=== PATIENT | male | born 1975 | race Caucasian/White ===

== ENCOUNTER 2024-04-07 09:00 | Observation (INO) | payer BC ==
[~2024-04-07] VITALS: Ht 190.5 cm; Wt 156.1 kg
[2024-04-07 10:03] LABS: BASO % 0.8 % (0.0-1.0); EOS # 0.2 10^3/uL (0.0-0.5); EOS % 2.9 % (0.0-3.0); HEMATOCRIT 49.8 % (42.0-52.0); HEMOGLOBIN 17.3 g/dl (13.5-17.5); LYMPH # 0.9 10^3/uL (1.5-5.0); LYMPH % 17.9 % (24.0-44.0); MEAN CORPUSCULAR HEMOGLOBIN 32.3 pg (27.0-33.0); MEAN CORPUSCULAR HGB CONC 34.7 g/dl (32.0-36.5); MEAN CORPUSCULAR VOLUME 93.1 fl (80.0-96.0); MONO # 0.3 10^3/uL (0.0-0.8); NEUTROPHILS # 3.7 10^3/uL (1.5-8.5); PLATELET COUNT, AUTOMATED 234 10^3/uL (150-450); RED BLOOD COUNT 5.35 10^6/uL (4.30-6.10); WHITE BLOOD COUNT 5.2 10^3/uL (4.0-10.0)
[2024-04-07 10:21] LABS: ETHYL ALCOHOL (ETHANOL) < 0.003 % (0.000-0.010); LIPASE 294 U/L (12-53)
[2024-04-07] MEDS: NS 500 ML IV ONE (10:21)
[2024-04-07 10:23] LABS: SALICYLATE LEVEL < 3.0 MG/DL (<30)
[2024-04-07] MEDS ORDERED: MULT1TAB7 PO (10:26)
[2024-04-07] MEDS ORDERED: B-12100020 PO (10:26)
[2024-04-07] MEDS ORDERED: LISI2.5T9 PO (10:26)
[2024-04-07] MEDS ORDERED: FLON27.5 (10:26)
[2024-04-07] MEDS ORDERED: CLAR10CA3 PO (10:26)
[2024-04-07] MEDS ORDERED: ESCI5SOL3 PO (10:26)
[2024-04-07] MEDS ORDERED: CALC500C16 PO (10:26)
[2024-04-07] MEDS ORDERED: FOLI400T13 PO ×2 (10:26→13:35)
[2024-04-07] MEDS ORDERED: METO200T15 PO (10:26)
[2024-04-07] MEDS ORDERED: FERR240T PO (10:26)
[2024-04-07] MEDS: METOPROLOL 5 MG/5 ML VIAL IV SCH (10:27)
[2024-04-07 10:34] LABS: ALKALINE PHOSPHATASE 86 U/L (46-116); ALT/SGPT 159 U/L (7.0-40); AST/SGOT 208 U/L (<34); BILIRUBIN,DIRECT 0.4 MG/DL (<0.4); BILIRUBIN,TOTAL 1.5 MG/DL (0.3-1.2); BLOOD UREA NITROGEN 10 MG/DL (9-23); CALCIUM LEVEL 9.6 MG/DL (8.5-10.1); CARBON DIOXIDE LEVEL 27 MMOL/L (20-31); CHLORIDE LEVEL 101 MMOL/L (98-107); CK-MB VALUE MASS 4.6 NG/ML (<3.6); CREATININE FOR GFR 0.79 MG/DL (0.70-1.30); GLOMERULAR FILTRATION RATE > 60.0 (>60); GLUCOSE, FASTING 107 MG/DL (60-100); SODIUM LEVEL 133 MMOL/L (136-145); TOTAL PROTEIN 7.4 G/DL (5.7-8.2)
[2024-04-07 10:38] LABS: INR 1.01; PARTIAL THROMBOPLASTIN TIME 22.8 SECONDS (24.8-34.2)
[2024-04-07 10:39] LABS: FREE T4 1.32 NG/DL (0.89-1.76); THYROID STIMULATING HORMONE 2.885 uIU/ML (0.55-4.78)
[2024-04-07 10:49] LABS: CPK CREATINE PHOSPHOKINASE 403 U/L (46-171); MB/CK RELATIVE INDEX 1.14 (< OR =4)
[2024-04-07] MEDS: THIAMINE 100 MG TAB PO SCH ×2 (10:58→19:51)
[2024-04-07] MEDS: LORazepam 2 MG TAB PO PRN (10:58)
[2024-04-07] MEDS: METOPROLOL SUCC *XL* 25MG TAB (TopROL *XL*) PO ONE (11:01)
[2024-04-07] MEDS: NS 1,000 ML IV ONE (11:09)
[2024-04-07] MEDS ORDERED: ISOVUE-370 76% 100ML VIAL As Ordered ONE (11:16)
[2024-04-07 11:50] LABS: CK-MB VALUE MASS 3.8 NG/ML (<3.6)
[2024-04-07 11:52] LABS: MB/CK RELATIVE INDEX 1.06 (< OR =4)
[2024-04-07 13:00] VITALS: BP 138/84; TEMP 96.6; O2SAT 98
[2024-04-07] MEDS ORDERED: LORazepam 2 MG TAB PO PRN (13:00)
[2024-04-07] MEDS: METOPROLOL 5 MG/5 ML VIAL IV STA (13:34)
[2024-04-07] MEDS ORDERED: LEXA1TAB2 PO (13:35)
[2024-04-07] MEDS ORDERED: MULT-90 PO (13:35)
[2024-04-07] MEDS ORDERED: TOPR25TA PO (13:35)
[2024-04-07] MEDS ORDERED: HOME MED LIST COMPLETE! XX SCH (13:40)
[2024-04-07 13:48] LABS: MAGNESIUM LEVEL 1.4 MG/DL (1.8-2.4)
[2024-04-07] MEDS ORDERED: HEPARIN SOD (PORCINE) 5000UNITS/ML 1ML VIAL/SYRINGE SC SCH (14:00)
[2024-04-07] MEDS: MAG SULF 1GM/100ML (MAG RUN) 1 GM in IV 1 EA IV SCH (15:33)
[2024-04-07] MEDS: MULTIVITAMINS/MINERALS THERAP 1 TAB PO SCH (15:34)
[2024-04-07] MEDS: FOLIC ACID 1MG TAB PO SCH (15:34)
[2024-04-07 19:41] VITALS: BP 125/71; TEMP 97.2; O2SAT 96
[2024-04-07] MEDS: METOPROLOL TART 50 MG TAB PO SCH (19:51)
[2024-04-07] MEDS: APIXABAN 5 MG TAB (ELIQUIS) PO SCH (19:51)
[2024-04-07] MEDS: CALCIUM CARBONATE 500 MG CHEW U/D PO SCH (19:51)
[2024-04-07 20:00] VITALS: BP 125/71
[2024-04-07 23:14] VITALS: BP 119/70; TEMP 97.8; O2SAT 96
[2024-04-08 00:57] VITALS: BP 120/70
[2024-04-08 03:36] VITALS: BP 104/57; TEMP 97.4; O2SAT 99
[2024-04-08 05:45] VITALS: BP 92/68
[2024-04-08 05:47] LABS: HEMATOCRIT 46.6 % (42.0-52.0); HEMOGLOBIN 15.7 g/dl (13.5-17.5); MEAN CORPUSCULAR HEMOGLOBIN 32.4 pg (27.0-33.0); MEAN CORPUSCULAR HGB CONC 33.7 g/dl (32.0-36.5); MEAN CORPUSCULAR VOLUME 96.1 fl (80.0-96.0); PLATELET COUNT, AUTOMATED 196 10^3/uL (150-450); RED BLOOD COUNT 4.85 10^6/uL (4.30-6.10); WHITE BLOOD COUNT 5.3 10^3/uL (4.0-10.0)
[2024-04-08] MEDS: SODIUM CHLORIDE 0.9% 1000ML IV ONE (06:02)
[2024-04-08 06:07] LABS: BLOOD UREA NITROGEN 12 MG/DL (9-23); CALCIUM LEVEL 8.7 MG/DL (8.5-10.1); CARBON DIOXIDE LEVEL 28 MMOL/L (20-31); CHLORIDE LEVEL 106 MMOL/L (98-107); CREATININE FOR GFR 0.78 MG/DL (0.70-1.30); GLOMERULAR FILTRATION RATE > 60.0 (>60); GLUCOSE, FASTING 98 MG/DL (60-100); POTASSIUM SERUM 4.1 MMOL/L (3.5-5.1); SODIUM LEVEL 139 MMOL/L (136-145)
[2024-04-08] MEDS: METOPROLOL TART 50 MG TAB PO SCH (06:30)
[2024-04-08 06:42] VITALS: BP 109/68
[2024-04-08] MEDS: FLUTICASONE PROP 0.05% NASAL SPRAY 16 GM (FLONASE) NARES SCH (08:22)
[2024-04-08 08:24] VITALS: BP 109/68
[2024-04-08] MEDS: METOPROLOL TART 25 MG TABLET PO ONE (08:24)
[2024-04-08] MEDS: LORATADINE 10 MG TAB PO SCH (08:24)
[2024-04-08] MEDS: ESCITALOPRAM OXALATE 10 MG TAB (LEXAPRO) PO SCH (08:24)
[2024-04-08 08:37] VITALS: BP 108/70; TEMP 97.2; O2SAT 95
[2024-04-08] MEDS ORDERED: METO1TAB87 PO (08:45)
[2024-04-08] MEDS ORDERED: ELIQ5TAB PO (08:45)
[2024-04-08] MEDS ORDERED: FOLIC ACID 1MG TAB PO SCH (09:00)
[2024-04-08] MEDS ORDERED: MULTIVITAMINS/MINERALS THERAP 1 TAB PO SCH (09:00)
== END 2024-04-08 11:05 | disposition home or self-care (01) ==
LOC: M ED 09:00 → M ED INP 12:57 → INTOOBSV 12:57 → M PCU 14:56
PROVIDERS: ADMIT Internal Medicine; ATTEND Internal Medicine
DX: I48.91 Unspecified atrial fibrillation (principal); F10.20 Alcohol dependence, uncomplicated; I10 Essential (primary) hypertension; F39 Unspecified mood [affective] disorder; J30.2 Other seasonal allergic rhinitis; E87.6 Hypokalemia; Z79.01 Long term (current) use of anticoagulants; Z79.899 Other long term (current) drug therapy
CPT/HCPCS: 36415; 71045; 71275; 74177; 80047; 80048; 80076; 80143; 82077; 82550; 82553; 83690; 83735; 84439; 84443; 84484; 85025; 85027; 85610; 85730; 93005; 93041; 94760; 96361; 96374; 96375; 99285; J3475; Q9967

== ENCOUNTER 2024-09-21 11:36 | Emergency (ER) | payer BC ==
[~2024-09-21] VITALS: Ht 193 cm; Wt 157.3 kg
[~2024-09-21 11:36] MED LIST: B-12100020 PO; CALC500C16 PO; CLAR10CA3 PO; ELIQ5TAB PO; ESCI5SOL3 PO; FERR240T PO; FLON27.5; FOLI400T13 PO; LEXA1TAB2 PO; LISI2.5T9 PO; METO1TAB87 PO; METO200T15 PO; MULT-90 PO; MULT1TAB7 PO; TOPR25TA PO
[2024-09-21 12:32] LABS: BASO % 0.6 % (0.0-1.0); EOS # 0.1 10^3/uL (0.0-0.5); HEMATOCRIT 45.2 % (42.0-52.0); HEMOGLOBIN 15.4 g/dl (13.5-17.5); LYMPH # 1.3 10^3/uL (1.5-5.0); MEAN CORPUSCULAR HEMOGLOBIN 31.3 pg (27.0-33.0); MEAN CORPUSCULAR HGB CONC 34.1 g/dl (32.0-36.5); MEAN CORPUSCULAR VOLUME 91.9 fl (80.0-96.0); MONO # 0.4 10^3/uL (0.0-0.8); MONO % 8.2 % (2.0-8.0); NEUTROPHILS # 3.3 10^3/uL (1.5-8.5); PLATELET COUNT, AUTOMATED 224 10^3/uL (150-450); RED BLOOD COUNT 4.92 10^6/uL (4.30-6.10); WHITE BLOOD COUNT 5.1 10^3/uL (4.0-10.0)
[2024-09-21] MEDS ORDERED: FERR325T3 PO (12:39)
[2024-09-21] MEDS ORDERED: METO1TAB87 PO (12:39)
[2024-09-21] MEDS ORDERED: IRON27TA2 PO (12:39)
[2024-09-21 13:07] LABS: CK-MB VALUE MASS < 1.0 NG/ML (<3.6)
[2024-09-21 13:10] LABS: BLOOD UREA NITROGEN 13 MG/DL (9-23); CALCIUM LEVEL 9.6 MG/DL (8.5-10.1); CARBON DIOXIDE LEVEL 25 MMOL/L (20-31); CHLORIDE LEVEL 108 MMOL/L (98-107); CPK CREATINE PHOSPHOKINASE 97 U/L (46-171); CREATININE FOR GFR 0.83 MG/DL (0.70-1.30); GLOMERULAR FILTRATION RATE > 60.0 (>60); GLUCOSE, FASTING 94 MG/DL (60-100); MB/CK RELATIVE INDEX 1.03 (< OR =4); POTASSIUM SERUM 4.4 MMOL/L (3.5-5.1); SODIUM LEVEL 141 MMOL/L (136-145)
[2024-09-21 13:59] LABS: CK-MB VALUE MASS < 1.0 NG/ML (<3.6)
[2024-09-21 14:00] LABS: CPK CREATINE PHOSPHOKINASE 87 U/L (46-171); MB/CK RELATIVE INDEX 1.14 (< OR =4)
[2024-09-21 15:00] VITALS: BP 112/71; TEMP 96; O2SAT 95
== END 2024-09-21 15:07 | disposition home or self-care (01) ==
LOC: M ED 11:36
DX: I48.91 Unspecified atrial fibrillation (principal); R07.89 Other chest pain; I10 Essential (primary) hypertension; F41.9 Anxiety disorder, unspecified; F32.9 Major depressive disorder, single episode, unspecified; Z98.84 Bariatric surgery status; Z79.01 Long term (current) use of anticoagulants; Z79.899 Other long term (current) drug therapy